=== PATIENT | female | born 1975 | race Caucasian/White ===

== ENCOUNTER 2022-06-11 02:47 | Emergency (ER) | payer OTHER, SELFPAY ==
[2022-06-11 02:57] VITALS: BP 112/79; PULSE 78; RESP 16; TEMP 36.1; O2SAT 98
--- NOTE | 2022-06-11 03:32 | ED.NURSE ---
pt given ice pack at [id number]
--- NOTE | 2022-06-11 03:53 | CRLHL7_ITS ---
For Patients: As a result of the Century Cures Act, medical imaging exams and procedure reports are released immediately into your electronic medical record. You may view this report before your referring provider. If you have questions, please contact your health care provider. INDICATION: Status post fall with loss of consciousness. COMPARISON: None available TECHNIQUE: CT examination of the cervical spine is performed without contrast using spiral technique. 1.5 mm thick axial, sagittal and coronal reconstructions were made. Please note that all CT scans at this facility use dose modulation, iterative reconstruction, and/or weight-based dosing when appropriate to reduce radiation dose to as low as reasonably achievable. FINDINGS: : There is no sign of fracture or subluxation. The cervical vertebral bodies and intervertebral discs are normal in height and are in anatomic alignment. There is no sign of prevertebral soft tissue swelling. The airway structures are normal in appearance. The visualized skull base is normal in appearance. The visualized inferior brain is normal in appearance for the patient`s age. The apices of the lungs are clear. IMPRESSION: Normal CT of the cervical spine with no sign of acute injury. Please note that all CT scans at this facility use dose modulation, iterative reconstruction, and/or weight-based dosing when appropriate to reduce radiation dose to as low as reasonably achievable. Dictated by Abebe Linares MD @ 06/11/2022 5:17:00 AM (Electronically Signed)
--- NOTE | 2022-06-11 03:53 | CRLHL7_ITS ---
For Patients: As a result of the Century Cures Act, medical imaging exams and procedure reports are released immediately into your electronic medical record. You may view this report before your referring provider. If you have questions, please contact your health care provider. INDICATION: Forehead. COMPARISON: None available. TECHNIQUE: CT examination of the head was performed with 3 mm thick axial and 2 mm thick coronal and sagittal sections without intravenous contrast. Images were obtained from the vertex of the skull through the skull base, and I examined the images with the brain and bone windows. Please note that all CT scans at this facility use dose modulation, iterative reconstruction, and/or weight-based dosing when appropriate to reduce radiation dose to as low as reasonably achievable. FINDINGS: : The brain is normal in appearance for the patient`s age on today`s study, with no sign of mass lesion, mass effect, hemorrhage, or edema. The ventricles and sulci are normal in appearance for the patient`s age. Incidental note is made of a partially empty sella, a common finding in a patient of this age. The visualized portions of the orbits are normal in appearance. The visualized portions of the paranasal sinuses and mastoids are clear. The osseous structures are normal in their appearance with no sign of abnormality in the skull base or calvarium. Incidental note is made of a sebaceous cyst in the high right posterior parietal scalp. IMPRESSION: No sign of closed head injury. Normal noncontrast CT of the head for the patient`s age. Please note that all CT scans at this facility use dose modulation, iterative reconstruction, and/or weight-based dosing when appropriate to reduce radiation dose to as low as reasonably achievable. Dictated by Abebe Linares MD @ 06/11/2022 5:15:44 AM (Electronically Signed)
--- NOTE | 2022-06-11 06:01 | ED.NURSE ---
irrigated lac with 250 cc of NS
[2022-06-11 06:23] VITALS: BP 132/62; PULSE 70; RESP 18; O2SAT 100
--- NOTE | 2022-06-11 07:27 | ED_ITS ---
HPI - General Adult General Date Seen: 06/11/22 Chief complaint: Dental/Oral/Mouth Injury/Pain Stated complaint: Fell and hit head and teeth Time Seen by Provider: 06/11/22 03:53 Source: patient and family History of Present Illness HPI narrative: Patient is a 46-year-old woman who is in town for a [place] reunion. She is in the ER here with her , who helps fill in some details of her injuries. It is a little unclear actually exactly how things happen. Patient says that she sleep walks. She has a cut on the right upper side of her scalp, and she also has foot laceration with dental trauma. She thinks that these are to s eparate injuries. She also thinks that she had at least 1 and probably to episodes of passing out, 1 perhaps directly related to head trauma and the other perhaps more vasovagal. She can not be entirely sure. She says she does have a history of passing out under stress, but she thinks 1 of the times that she asked out was directly when she hit her head. In any case, she thinks she hit her head once on the upper bunk bed, was briefly knocked out, perhaps laid back down after that, then got back up to help her son, a hit her head again, then walked forward, fell and at that point hit her mouth on the ground sustaining a laceration on her lower lip. She has veneers on her upper front 4 teeth and those were damaged in the process. Her neck feels a little bit sore in a ?whiplash? sort of way, a little achy on both sides. She denies severe pain. She does have a headache although it is mild. She denies any vomiting. She does not take any blood thinners. Related Data Home Medications Medication Instructions Recorded Confirmed fluoxetine 20 mg capsule 20 mg PO DAILY 06/11/22 06/11/22 Previous Rx's Medication Instructions Recorded clindamycin HCl 300 mg capsule 300 mg PO TID #15 caps 06/11/22 valacyclovir 1 gram tablet 1,000 mg PO BID #4 tabs 06/11/22 (Valtrex) Allergies Allergy/AdvReac Type Severity Reaction Status Date / Time amoxicillin Allergy Verified 06/11/22 03:04 Review of Systems Status of ROS: Reports: 10 or more systems reviewed and unremarkable except as noted in History and below PFSH PFS Social History Smoking Status: Never smoker Do you use any of these nicotine containing products: None Second hand tobacco smoke exposure: No How often do you have a drink containing alcohol: monthly or less How often do you have six or more drinks on one occasion: Never AUDIT-C Alcohol total score: 1 Non-prescribed substance use: denies use service: No Exam Narrative: Exam Narrative: Vital signs as noted below In general, an alert, nontoxic woman. Head: Normocephalic. She has a 3 cm laceration on the right upper scalp. Bleeding is controlled. This extends into the dermis but not down to deeper tissues. Eyes: Pupils are equal reactive. Extraocular movements are full. Conjunctivae are normal. No ocular trauma. ENT: No bony facial trauma. Dental trauma noted to the upper central incisors, with the right veneer being broken into multiple pieces. Two of the larger pieces were still loosely attached, these were removed. No alveolar bony instability. No lower dental trauma. There is a through and through laceration of the lower lip which does not involve the vermilion border. The exterior portion is 2 cm in length. The interior portion is approximately 2 cm in total length as well although it is not linear. Neck: Supple without lymphadenopathy. No midline tenderness. Heart: Regular rate and rhythm. No murmur or rub. Lungs: Clear bilaterally. No increased work of breathing, crackles or wheezes. Abdomen: Soft and nontender. No organomegaly. Extremities: Well perfused. No edema. No calf tenderness. Pulses intact. Neurologic: Patient is alert and oriented to person and place. Speech is fluent. Face is symmetric. Moves all extremities equally. Affect: Normal. Skin: Warm and dry. Well perfused. Const: Vital Signs, click to edit/add: Vital Signs - 24 hr 06/11/22 02:57 06/11/22 06:23 Temperature 97.0 F L Pulse Rate [Left P ulse Oximeter] 78 70 Respiratory Rate 16 18 Blood Pressure [Le ft Upper Arm] 112/79 132/62 Pulse Oximetry 98 100 Oxygen Delivery Me thod Room Air Room Air Documenting provider has reviewed patient's vital signs: yes Course Course Hospital Course: Given patient's description of at least 1 episode of loss of consciousness after hitting her head, I did feel that she should have a CT scan of her head, and she was also describing neck pain so she had a CT scan of her cervical spine as well. I reviewed her head CT, I did not see any evidence of intracranial hemorrhage. Final radiology report is as follows: IMPRESSION: No sign of closed head injury. Normal noncontrast CT of the head for the patient`s age. CT of the cervical spine is read as negative. I have relayed these findings to the patient. Attention was then turned to her lacerations. In terms of the scalp laceration, I felt this would be amenable to hair apposition closure with Dermabond. She was enthusiastic about the idea of not using sutures there, so this seemed like a reasonable approach. Procedure note: The scalp laceration was cleaned using normal saline. Explored without evidence of foreign body. I then used hair apposition and Dermabond to bring the wound adjust together and then fell. She tolerated this well, with good wound closure and no immediate complications. Procedure note: The lip laceration was anesthetized using lidocaine with epinephrine. I then began to clean this laceration. As I began to explore it, I noted there were a large number of small pieces of the veneer from her upper incisor in the wound. I removed all of these manually, but then did also have the nurse irrigate this wound using normal saline and IV catheter to make sure that any tiny remaining pieces that I might not be able to see would be washed free. Then I closed the wound on the exterior lip using 5 0 Vicryl, a total of 4 superficial simple interrupted sutures were placed. I closed the inside using 5 0 Vicryl, a total of 5 simple interrupted superficial sutures were placed there. She tolerated this well, no immediate complication. We discussed that the lip laceration is slightly higher risk being through and through. Also discussed that as careful as I was to remove all the small pieces of that tooth, if I a happen to miss 1, that that would raise the risk of infection also. All things considered, I do think this is the wound that would benefit from prophylactic antibiotics, so I am going to prescribe some clindamycin. She also says she is prone to cold sores, particularly when there is an area of trauma, so I am going to prescribe prophylactic Valtrex for her. If she develops any signs of infection in that wound she should come back or be seen again. They are actually from the core I will. We did neglect to ask her about her tetanus status, so I will need to call her and ask her to go in and get an updated tetanus if she is not up-to-date. She declines the need for anything else for pain, can use ibuprofen or Tylenol as needed. Vital Signs Vital signs: Initial Vital Signs Temperature 97.0 F L 06/11/22 02:57 Temperature Source Temporal Artery Scan 06/11/22 02:57 Pulse Rate 78 06/11/22 02:57 Pulse Rhythm 06/11/22 02:57 Respiratory Rate 16 06/11/22 02:57 Blood Pressure 112/79 06/11/22 02:57 Blood Pressure Mean 90 06/11/22 02:57 Blood Pressure Position Semi-Fowlers 06/11/22 02:57 Pulse Oximetry 98 06/11/22 02:57 Oxygen Delivery Method 06/11/22 02:57 Vital Signs Temperature 97.0 F L 06/11/22 02:57 Pulse Rate 78 06/11/22 02:57 Respiratory Rate 16 06/11/22 02:57 Blood Pressure 112/79 06/11/22 02:57 Pulse Oximetry 98 06/11/22 02:57 Oxygen Delivery Method 06/11/22 02:57 Temperature 97.0 F L 06/11/22 02:57 Pulse Rate 70 06/11/22 06:23 Respiratory Rate 18 06/11/22 06:23 Blood Pressure 132/62 06/11/22 06:23 Pulse Oximetry 100 06/11/22 06:23 Oxygen Delivery Method 06/11/22 06:23 Discharge Plan Discharge Clinical Impression: Complicated laceration of lip, Fracture of tooth, Laceration of scalp Instructions: Laceration (DC), Acute Dental Trauma (ED) Additional Instructions: Antibiotic as prescribed. Sutures in your lip are absorbable, but can be removed in about a week if you would like. If you note signs of infection such as worsening swelling, pain, drainage etcetera, you should be seen again. You will need to follow-up with your dentist regarding your teeth. Prescriptions: New valacyclovir [Valtrex] 1 gram tablet 1,000 mg PO BID Qty: 4 0RF clindamycin HCl 300 mg capsule 300 mg PO TID Qty: 15 0RF No Action fluoxetine 20 mg capsule 20 mg PO DAILY Label Comments: pt takes 30 mg. One 20 mg pill and one 10 mg pill Follow Up/Referrals: Provider,Not a Local [Primary Care Provider] -
== END 2022-06-11 06:39 | disposition home or self-care (01) ==
LOC: ED 04:46
PROVIDERS: Emergency Provider Emergency Medicine
DX: S01.511A Laceration without foreign body of lip, initial encounter (principal); S01.01XA Laceration without foreign body of scalp, initial encounter; S02.5XXA Fracture of tooth (traumatic), initial encounter for closed fracture; W01.10XA Fall on same level from slipping, tripping and stumbling with subsequent striking against unspecified object, initial encounter
CPT/HCPCS: 12011; 70450; 72125; 99284